=== PATIENT | female | born 1995 | race Caucasian/White ===

== ENCOUNTER 2023-12-10 07:19 | Emergency (ER) | payer BC, SELFPAY ==
[2023-12-10 07:20] VITALS: BP 123/77; PULSE 75; RESP 16; TEMP 36.4; O2SAT 99; BMI 26.2
--- NOTE | 2023-12-10 07:59 | EDS_ITS ---
HPI History of Present Illness Chief Complaint: Abscess Informant: patient Narrative Narrative: Patient is a 28-year-old female with no significant past medical history. She states that she has noticed over the last 5 to 7 days there is been a small lump in her genital region. She states it has become red and painful. She denies any concern for or STD. She does state that she developed a similar infection a few years ago that got so large it made it difficult to walk and needed lanced with concern this would happen again she presents for evaluation [facility] Home Medications ?Medication ?Instructions ?Recorded ?Last Taken ?Type clindamycin HCl 300 mg capsule 300 mg PO 4X/DAY 10 days #40 12/10/23 Unknown Rx (Cleocin HCl) CAPSULES oxycodone-acetaminophen 5 mg-325 1 tab PO Q6H PRN pain 3 days #12 12/10/23 Unknown Rx mg tablet (Percocet) tabs Allergy/AdvReac Type Severity Reaction Status Date / Time No Known Allergies Allergy Verified 12/10/23 07:21 Social History Smoking Status: Unknown if ever smoked ROS ROS ED Constitutional Constitutional ED: Denies chills or fever(s) ENT ENT ED: Denies sore throat Cardiovascular Cardiovascular: Denies chest pain Respiratory/Chest Respiratory/Chest: Denies cough or dyspnea Gastrointestinal Gastrointestinal: Denies abdominal pain, diarrhea, nausea or vomiting Genitourinary Genitourinary ED: Denies dysuria, hematuria or urinary frequency Musculoskeletal Musculoskeletal: Denies myalgias Integumentary Reports abscess Neurologic Neurologic: Denies headache(s) Hematologic/Lymphatic Hematologic/Lymphatic: Denies easy bleeding or easy bruising Allergic/Immunologic Allergic/Immunologic ED: Denies urticaria EXAM Physical Exam Const Vital Signs: 12/10/23 07:20 12/10/23 08:07 Temperature 97.6 F L 97.6 F L Temperature Source Temporal Pulse Rate 75 64 Respiratory Rate 16 18 Blood Pressure 123/77 H 126/78 H Blood Pressure Mean 92 94 Pulse Ox 99 99 Oxygen Delivery Method Room Air Positive well nourished and well developed General Appearance ED: well developed HEENT HEENT Narrative: Normocephalic atraumatic Eyes PERRL and EOMs intact bilaterally General Eye ED: Negative for scleral icterus Neck supple Resp normal respiratory effort and clear to auscultation bilaterally Cardio regular rate and regular rhythm GI normal to inspection, nondistended, normoactive bowel sounds, non-tender, non- distended and no masses Auscultation: normoactive bowel sounds Palpation: soft Narrative: In the suprapubic space along the right side just above the right labia there is a small half centimeter area of erythema and slight induration. No active drainage or lymphangitic streaking. No crepitance palpated; no signs of Nakia's gangrene Extremity normal to inspection Neuro oriented x3, CN's II-XII intact bilaterally and no sensory deficits noted Sensorium / Orientation: alert Motor Exam: strength 5/5 throughout Psych mental status grossly normal Skin Skin Narrative: Soft tissue chain consistent with early abscess in the right suprapubic region as documented above MDM MDM MDM Narrative Medical decision making narrative: Patient arrived to ER with stable vitals and reported approximate 5 days of a small lump in the right genital region. Differential diagnosis is for cutaneous abscess versus cellulitis versus herpes versus Bartholin cyst versus abscess versus Nakia's gangrene. The patient is not immunosuppressed and physical exam shows a small area of erythema and slight induration consistent with developing early abscess. The area is in the suprapubic region and not along the vaginal tissue going against Bartholin cyst/abscess. She is not immunosuppressed nor does she have crepitance going against Nakia's gangrene. At this time I do not feel there is need for incision and drainage as the area is small and lancing will most likely not produce any type of drainage. Therefore she will be instructed on warm compresses and be placed on oral antibiotics to see if this helps resolve the infection and is otherwise safe for discharge as there is no signs of systemic infection History & Record Review Discussion w/independent historian: Patient Discharge Plan Triage Chief Complaint: Abscess ED Provider: Irving Cheng Dx/Rx/DC Orders Clinical Impression: Abscess Instructions: ED Abscess Antibiotic Treatment Only Prescriptions: New clindamycin HCl [Cleocin HCl] 300 mg capsule 300 mg PO 4X/DAY 10 Days Qty: 40 0RF oxycodone-acetaminophen [Percocet] 5-325 mg tablet 1 tab PO Q6H PRN (Reason: pain) 3 Days Qty: 12 0RF Primary Care Provider: Care Physician,No Primary Referrals: Aleshia Bhatti MD [Med Staff - Active Staff] - Care Physician,No Primary [Primary Care Provider] - Activity Restrictions/Additional Instructions: Please also use warm compresses and/or sitz bath's to help resolve your infection. If this coupled with the antibiotic does not resolve the infection and may need incised and drained. Please return to the ER or follow-up with CLINIC OFFICE MANAGER if this happens or you have any further concerns Print Language: Greek Disposition Disposition: Home, Self Care Discharge Date/Time: 12/10/23 08:08
[2023-12-10 08:07] VITALS: BP 126/78; PULSE 64; RESP 18; TEMP 36.4; O2SAT 99
== END 2023-12-10 08:08 | disposition home or self-care (01) ==
PROVIDERS: Emergency Provider Emergency Medicine; Visit Provider Emergency Medicine
DX: N76.4 Abscess of vulva (principal)
CPT/HCPCS: 99282